=== PATIENT | female | born 1970 | race Hispanic/Latino ===

== ENCOUNTER 2016-12-28 13:38 | Emergency (ER) | payer MEDICAID ==
--- NOTE | 2016-12-28 14:16 | Admit Criteria Form ---
Admission Criteria Documentation: DRUG INGESTION OR OVERDOSE Clinical Indications for Admission to Inpatient Care ( Place 'X' for any and all applicable criteria): Admission is indicated for severe toxicity as indicated by ANY ONE of the following(1)(2)(3)(4)(5)(6): [X ]I. Inpatient admission required rather than observation care (Also use Drug Ingestion or Overdose: Observation Care guideline as appropriate) because of ANY ONE of the following: [ ]a) Altered mental status that is severe or persistent [ ]b) Clinical finding (eg, metabolic acidosis, hypoglycemia, bradycardia) that is severe or persistent [ ]c) Toxic drug level that is persistent [ ]d) Psychiatric risk status not acceptable for outpatient management [ ]e) Continuous intravenous infusion of anticoagulation, platelet inhibitor, vasoactive, or antiarrhythmic medication (15)(16) [X ]f) Other condition, treatment or monitoring requiring inpatient admission [ ]II. Respiratory abnormalities [ ]III. Specific finding indicating severe and likely prolonged drug toxicity [ ]IV. Hemodynamic instability [ ]V. Dangerous arrhythmia [ ]. Hypertension requiring inpatient treatment Extended stay beyond goal length of stay may be needed for (4): [ ]a) Neurologic or respiratory compromise [ ]b) Hemodynamic instability [ ]c) Persistent toxic drug levels (25) [ ]d) Severe drug toxicities or complications [ ]e) Ongoing antidote treatment (eg, acetaminophen overdose)(5) [ ]f) Older patients(65 years or older) The original [email or web address] content created by [employer] has been revised. The portions of the content which have been revised are identified through the use of italic text or in bold, and [facility] has neither reviewed nor approved the modified material. All other unmodified content is copyright [facility]. Please see references footnoted in the original [email or web address] edition 2016
[2016-12-28 14:56] LABS: Basophils % (Auto) 1.1 % (0.0-1.8); Eosinophils % (Auto) 0.5 % (0.0-4.3); Hematocrit 39.9 % (30.3-42.9); Hemoglobin 12.4 gm/dl (10.1-14.3); Mean Corpuscular HGB Conc 31 % (30-34); Mean Corpuscular Volume 80 fl (79-97); Platelet Count 382 K/mm3 (140-440); Red Blood Count 5.01 M/mm3 (3.65-5.03); Red Cell Distribution Width 18.4 % (13.2-15.2); White Blood Count 15.2 K/mm3 (4.5-11.0)
[2016-12-28 15:04] LABS: Mean Corpuscular Hemoglobin 25 pg (28-32)
[2016-12-28 15:13] LABS: Anion Gap 20 mmol/L; BUN/Creatinine Ratio 18.33; Blood Urea Nitrogen 11 mg/dL (7-17); Calcium 8.9 mg/dL (8.4-10.2); Carbon Dioxide 25 mmol/L (22-30); Chloride 96.9 mmol/L (98-107); Glucose 89 mg/dL (65-100); Potassium 4.6 mmol/L (3.6-5.0); Sodium 137 mmol/L (137-145)
[2016-12-28 15:23] LABS: Urine Drugs of Abuse Note Disclamer
[2016-12-28 15:31] LABS: Bilirubin,Urine NEG (Negative); Blood,Urine NEG (Negative); Ketones,Urine TR mg/dL (Negative); Leukocyte Esterase,Urine NEG (Negative); Mucus,Urine FEW /HPF; Nitrite,Urine NEG (Negative); Protein,Urine <15 mg/dL mg/dL (Negative); Urobilinogen,Urine < 2.0 mg/dL (<2.0)
--- NOTE | 2016-12-28 16:06 | Emergency Department Report ---
HPI - General Chief Complaint: Overdose Time Seen by Provider: 12/28/16 14:18 - HPI HPI: Chief complaint: Possible overdose HPI: Patient is a 46-year-old female whose daughter states that she was perfectly fine until someone came over and after they left approximately 20 minutes later patient was unarousable. Daughter called EMS who found the patient to be lethargic and gave her Narcan with very minimal response. According to the daughter patient has had a problem with narcotic pain medications as well as benzodiazepines but had weaned herself off of them and had not taken any for approximately one month. Mode of arrival: EMS Source: family member Began: Prior to admission Duration: Continuous Context: See above Quality: Unable to assess Severity: Unable to assess Improved with: Nothing Worsened with: Nothing Associated signs and symptoms: Unable to assess ED Past Medical Hx - Past Medical History Previous Medical History?: Yes Additional medical history: HAS A HX OF DRUG ABUSE - Social History Smoking Status: Current Every Day Smoker - Medications Home Medications: Home Medications Medication Instructions Recorded Confirmed Last Taken Type Unobtainable 12/28/16 12/28/16 Unknown History ED Review of Systems ROS: Stated complaint: POSS OVERDOSE Other details as noted in HPI Comment: Unobtainable due to pts medical conditions (patient with decreased responsiveness) Physical Exam - Physical Exam Vital Signs: Vital Signs 12/28/16 12/28/16 12/28/16 13:38 13:40 13:45 Temperature 97.5 F L Pulse Rate 73 67 59 L Respiratory 15 19 Rate Blood Pressure 143/76 143/76 O2 Sat by Pulse 97 97 98 Oximetry 12/28/16 12/28/16 12/28/16 14:00 14:15 14:31 Temperature Pulse Rate 55 L 61 70 Respiratory 18 13 15 Rate Blood Pressure 137/88 137/88 134/80 O2 Sat by Pulse 98 97 100 Oximetry Physical Exam: GENERAL: The patient is well-developed well-nourished . HEENT: Normocephalic. Atraumatic. Extraocular motions are intact. Patient has moist mucous membranes. Pupils 3 mm and responsive NECK: Supple. No meningitic signs are noted. There is no adenopathy noted. CHEST/LUNGS: Clear to auscultation. There is no respiratory distress noted. HEART/CARDIOVASCULAR: Regular. There is no tachycardia. There is no gallop rub or murmur. ABDOMEN: Abdomen is soft, nontender. Patient has normal bowel sounds. There is no abdominal distention. SKIN: There is no rash. There is no edema. There is no diaphoresis. NEURO: The patient is lethargic but will open her eyes and converse somewhat. Patient is oriented to name and situation but not date or time and unable to tell me what happened. The patient is cooperative. The patient moves all extremities to touch. MUSCULOSKELETAL: There is no deformity. There is no evidence of acute injury. ED Course Vital Signs 12/28/16 12/28/16 12/28/16 13:38 13:40 13:45 Temperature 97.5 F L Pulse Rate 73 67 59 L Respiratory 15 19 Rate Blood Pressure 143/76 143/76 O2 Sat by Pulse 97 97 98 Oximetry 12/28/16 12/28/16 12/28/16 14:00 14:15 14:31 Temperature Pulse Rate 55 L 61 70 Respiratory 18 13 15 Rate Blood Pressure 137/88 137/88 134/80 O2 Sat by Pulse 98 97 100 Oximetry - Reevaluation(s) Reevaluation #1: 12/28/16 16:00 Patient is now awake alert and oriented 3. The patient denies taking any drugs and states that she took a sip of her friend's drink and then doesn't remember what happened after that. The most likely cause of this is GHB ingestion. ED Medical Decision Making - Lab Data Result diagrams: 12/28/16 14:31 12/28/16 14:31 Laboratory Tests 12/28/16 12/28/16 12/28/16 14:08 14:08 14:31 Urine HCG, Qual Negative Salicylates Urine Opiates Screen Presumptive negative Urine Methadone Screen Presumptive negative Acetaminophen < 15.0 Ur Barbiturates Screen Presumptive negative Ur Phencyclidine Scrn Presumptive negative Ur Amphetamines Screen Presumptive negative U Benzodiazepines Scrn Presumptive negative Urine Cocaine Screen Presumptive negative U Marijuana (THC) Screen Presumptive negative Plasma/Serum Alcohol 12/28/16 12/28/16 14:31 14:31 Urine HCG, Qual Salicylates < 0.3 L Urine Opiates Screen Urine Methadone Screen Acetaminophen Ur Barbiturates Screen Ur Phencyclidine Scrn Ur Amphetamines Screen U Benzodiazepines Scrn Urine Cocaine Screen U Marijuana (THC) Screen Plasma/Serum Alcohol < 0.01 Critical care attestation.: If time is entered above; I have spent that time in minutes in the direct care of this critically ill patient, excluding procedure time. ED Disposition Clinical Impression: Accidental drug overdose Qualifiers: Encounter type: initial encounter Qualified Code(s): T50.901A - Poisoning by unspecified drugs, medicaments and biological substances, accidental ( unintentional), initial encounter Disposition: DISCHARGED TO HOME OR SELFCARE Is pt being admited?: No Does the pt Need Aspirin: No Condition: Stable Instructions: Polysubstance Abuse (ED) Referrals: PRIMARY CARE, [Primary Care Provider] - 3-5 Days Time of Disposition: 16:01
[2016-12-28 16:34] VITALS: BP 149/83
== END 2016-12-28 16:32 | disposition home or self-care (01) ==
LOC: ED 13:38
DX: T50.901A Poisoning by unspecified drugs, medicaments and biological substances, accidental (unintentional), initial encounter (principal); F17.200 Nicotine dependence, unspecified, uncomplicated; Y92.89 Other specified places as the place of occurrence of the external cause
CPT/HCPCS: 36415; 51702; 80048; 80307; 81001; 81025; 85025; 93005; 93010; 99284; G0480; 80320

== ENCOUNTER 2017-11-14 01:29 | Inpatient (IN) | payer MEDICAID, OTHER ==
--- NOTE | 2017-11-14 01:56 | Emergency Department Report ---
ED Altered Mental Status HPI - General Stated Complaint: POSS OD Time Seen by Provider: 11/14/17 01:42 Source: EMS Mode of arrival: Stretcher Limitations: Altered Mental Status - History of Present Illness Initial Comments: 47 yo female presents to the hospital with possible overdose. Patient was last seen normal 15 minutes prior to being discovered in the bed and unresponsive. Patient takes Xanax. History of overdose presentation here in December with GHB suspected. Patient received Narcan 2 mg prior to arrival with no response. She presents here obtunded without any response to noxious stimuli is in no gag reflex. - Related Data Home Medications Medication Instructions Recorded Confirmed Last Taken Unobtainable 12/28/16 12/28/16 Unknown Allergies Allergy/AdvReac Type Severity Reaction Status Date / Time naproxen Allergy Unknown Verified 12/28/16 13:40 ED Review of Systems ROS: Stated complaint: POSS OD Other details as noted in HPI Comment: Unobtainable due to pts medical conditions ED Past Medical Hx - Past Medical History Additional medical history: HAS A HX OF DRUG ABUSE - Social History Smoking Status: Current Every Day Smoker - Medications Home Medications: Home Medications Medication Instructions Recorded Confirmed Last Taken Type Unobtainable 12/28/16 12/28/16 Unknown History ED Physical Exam - Other Other exam information: General: No limitations, patient is alert in no acute distress Head exam: Atraumatic, normocephalic Eyes exam: Normal appearance, pupils equal reactive to light ENT: Moist mucous membrane, normal oropharynx, no gag reflex Neck exam: Normal inspection Respiratory exam: Clear to auscultation bilateral, no wheezes, rales, crackles Cardiovascular: Normal rate and rhythm, normal heart sounds Abdomen: Soft, nondistended, and nontender, with normal bowel sounds, no rebound, or guarding Extremity: Full range of motion normal inspection no deformity Back: Normal Inspection, full range of motion, no tenderness Neurologic: Obtunded, does not open eyes spontaneously or to pain, spontaneous movement of her feet noted Psychiatric: unresponsive Skin: Warm, dry, intact ED Course Vital Signs 11/14/17 11/14/17 11/14/17 01:46 02:00 02:01 Pulse Rate 60 60 59 L Respiratory 12 12 14 Rate Blood Pressure 148/95 135/87 Blood Pressure 146/85 [Left] O2 Sat by Pulse 100 100 100 Oximetry 11/14/17 11/14/17 11/14/17 02:15 02:16 02:30 Pulse Rate 57 L 58 L 44 L Respiratory 16 11 L Rate Blood Pressure 183/109 168/99 180/94 Blood Pressure [Left] O2 Sat by Pulse 100 100 100 Oximetry 11/14/17 11/14/17 02:43 02:45 Pulse Rate 48 L Respiratory 16 16 Rate Blood Pressure 183/92 Blood Pressure [Left] O2 Sat by Pulse 100 100 Oximetry - Reevaluation(s) Reevaluation #1: 11/14/17 02:11 pt intubated for airway protection, since no gag reflex detected and patient did not have a response to Narcan. Did not want to give flumazenil due to risk of seizures in patients who have chronic benzodiazepine use. - Intubation Time Out Performed: Yes Sedative: Etomidate Mg Given: 20 Paralytic: Succinylcholine Mg Given: 100 Laryngoscope: Milind Size: 3 ET Tube Size: 7.5 Tube Secured Depth (cm): 21 Tube Secured Location: lips Tube Placement Confirmation: visualized tube passing t, equal breath sounds bilat, no breath sounds over epi, confirmation by capnometr Patient Tolerated Procedure: well Intubation Complications: none - Lab Data Result diagrams: 11/14/17 02:08 11/14/17 02:08 Lab Results 11/14/17 11/14/17 11/14/17 Range/Units 01:43 01:50 02:08 WBC 6.8 (4.5-11.0) K/mm3 RBC 4.24 (3.65-5.03) M/mm3 Hgb 10.9 (10.1-14.3) gm/dl Hct 34.0 (30.3-42.9) % MCV 80 (79-97) fl MCH 26 L (28-32) pg MCHC 32 (30-34) % RDW 18.2 H (13.2-15.2) % Plt Count 396 (140-440) K/mm3 Lymph % (Auto) 31.1 (13.4-35.0) % Haines % (Auto) 6.7 (0.0-7.3) % Eos % (Auto) 0.7 (0.0-4.3) % Baso % (Auto) 1.9 H (0.0-1.8) % Lymph # 2.1 (1.2-5.4) K/mm3 Haines # 0.5 (0.0-0.8) K/mm3 Eos # 0.0 (0.0-0.4) K/mm3 Baso # 0.1 (0.0-0.1) K/mm3 Seg Neutrophils % 59.6 (40.0-70.0) % Seg Neutrophils # 4.0 (1.8-7.7) K/mm3 POC ABG pH (7.35-7.45) POC ABG pCO2 (35-45) POC ABG pO2 (80-105) POC ABG HCO3 POC ABG Total CO2 POC ABG O2 Sat POC ABG Base Excess FiO2 % Sodium (137-145) mmol/L Potassium (3.6-5.0) mmol/L Chloride (98-107) mmol/L Carbon Dioxide (22-30) mmol/L Anion Gap mmol/L BUN (7-17) mg/dL Creatinine (0.7-1.2) mg/dL Estimated GFR ml/min BUN/Creatinine Ratio % Glucose (65-100) mg/dL Lactic Acid (0.7-2.0) mmol/L Calcium (8.4-10.2) mg/dL Total Bilirubin (0.1-1.2) mg/dL AST (5-40) units/L ALT (7-56) units/L Alkaline Phosphatase (35-129) units/L Ammonia (25-60) umol/L Total Creatine Kinase (30-135) units/L CK-MB (CK-2) (0.0-4.0) ng/mL CK-MB (CK-2) Rel Index (0-4) Troponin T (0.00-0.029) ng/mL Total Protein (6.3-8.2) g/dL Albumin (3.9-5) g/dL Albumin/Globulin Ratio % HCG, Qual (Negative) Urine Color (Yellow) Urine Turbidity (Clear) Urine pH (5.0-7.0) Ur Specific [place] (1.003-1.030) Urine Protein (Negative) mg/dL Urine Glucose (UA) (Negative) mg/dL Urine Ketones (Negative) mg/dL Urine Blood (Negative) Urine Nitrite (Negative) Urine Bilirubin (Negative) Urine Urobilinogen (<2.0) mg/dL Ur Leukocyte Esterase (Negative) Urine WBC (Auto) (0.0-6.0) /HPF Urine RBC (Auto) (0.0-6.0) /HPF U Epithel Cells (Auto) (0-13.0) /HPF Urine Mucus /HPF Salicylates < 0.3 L (2.8-20.0) mg/dL Urine Opiates Screen Presumptive negative Urine Methadone Screen Presumptive negative Acetaminophen (10.0-30.0) ug/mL Ur Barbiturates Screen Presumptive negative Ur Phencyclidine Scrn Presumptive negative Ur Amphetamines Screen Presumptive positive U Benzodiazepines Scrn Presumptive positive Urine Cocaine Screen Presumptive negative U Marijuana (THC) Screen Presumptive negative Drugs of Abuse Note Disclamer Plasma/Serum Alcohol (0-0.07) gm% 11/14/17 11/14/17 11/14/17 Range/Units 02:08 02:08 02:08 WBC (4.5-11.0) K/mm3 RBC (3.65-5.03) M/mm3 Hgb (10.1-14.3) gm/dl Hct (30.3-42.9) % MCV (79-97) fl MCH (28-32) pg MCHC (30-34) % RDW (13.2-15.2) % Plt Count (140-440) K/mm3 Lymph % (Auto) (13.4-35.0) % Haines % (Auto) (0.0-7.3) % Eos % (Auto) (0.0-4.3) % Baso % (Auto) (0.0-1.8) % Lymph # (1.2-5.4) K/mm3 Haines # (0.0-0.8) K/mm3 Eos # (0.0-0.4) K/mm3 Baso # (0.0-0.1) K/mm3 Seg Neutrophils % (40.0-70.0) % Seg Neutrophils # (1.8-7.7) K/mm3 POC ABG pH (7.35-7.45) POC ABG pCO2 (35-45) POC ABG pO2 (80-105) POC ABG HCO3 POC ABG Total CO2 POC ABG O2 Sat POC ABG Base Excess FiO2 % Sodium 138 (137-145) mmol/L Potassium 4.7 (3.6-5.0) mmol/L Chloride 99.5 (98-107) mmol/L Carbon Dioxide 22 (22-30) mmol/L Anion Gap 21 mmol/L BUN 10 (7-17) mg/dL Creatinine 0.6 L (0.7-1.2) mg/dL Estimated GFR > 60 ml/min BUN/Creatinine Ratio 17 % Glucose 110 H (65-100) mg/dL Lactic Acid 0.90 (0.7-2.0) mmol/L Calcium 8.9 (8.4-10.2) mg/dL Total Bilirubin 0.40 (0.1-1.2) mg/dL AST 17 (5-40) units/L ALT 29 (7-56) units/L Alkaline Phosphatase 110 (35-129) units/L Ammonia 34.0 (25-60) umol/L Total Creatine Kinase 106 (30-135) units/L CK-MB (CK-2) 3.1 (0.0-4.0) ng/mL CK-MB (CK-2) Rel Index 2.9 (0-4) Troponin T < 0.010 (0.00-0.029) ng/mL Total Protein 6.5 (6.3-8.2) g/dL Albumin 4.1 (3.9-5) g/dL Albumin/Globulin Ratio 1.7 % HCG, Qual (Negative) Urine Color (Yellow) Urine Turbidity (Clear) Urine pH (5.0-7.0) Ur Specific [place] (1.003-1.030) Urine Protein (Negative) mg/dL Urine Glucose (UA) (Negative) mg/dL Urine Ketones (Negative) mg/dL Urine Blood (Negative) Urine Nitrite (Negative) Urine Bilirubin (Negative) Urine Urobilinogen (<2.0) mg/dL Ur Leukocyte Esterase (Negative) Urine WBC (Auto) (0.0-6.0) /HPF Urine RBC (Auto) (0.0-6.0) /HPF U Epithel Cells (Auto) (0-13.0) /HPF Urine Mucus /HPF Salicylates (2.8-20.0) mg/dL Urine Opiates Screen Urine Methadone Screen Acetaminophen (10.0-30.0) ug/mL Ur Barbiturates Screen Ur Phencyclidine Scrn Ur Amphetamines Screen U Benzodiazepines Scrn Urine Cocaine Screen U Marijuana (THC) Screen Drugs of Abuse Note Plasma/Serum Alcohol (0-0.07) gm% 11/14/17 11/14/17 11/14/17 Range/Units 02:08 02:08 02:08 WBC (4.5-11.0) K/mm3 RBC (3.65-5.03) M/mm3 Hgb (10.1-14.3) gm/dl Hct (30.3-42.9) % MCV (79-97) fl MCH (28-32) pg MCHC (30-34) % RDW (13.2-15.2) % Plt Count (140-440) K/mm3 Lymph % (Auto) (13.4-35.0) % Haines % (Auto) (0.0-7.3) % Eos % (Auto) (0.0-4.3) % Baso % (Auto) (0.0-1.8) % Lymph # (1.2-5.4) K/mm3 Haines # (0.0-0.8) K/mm3 Eos # (0.0-0.4) K/mm3 Baso # (0.0-0.1) K/mm3 Seg Neutrophils % (40.0-70.0) % Seg Neutrophils # (1.8-7.7) K/mm3 POC ABG pH (7.35-7.45) POC ABG pCO2 (35-45) POC ABG pO2 (80-105) POC ABG HCO3 POC ABG Total CO2 POC ABG O2 Sat POC ABG Base Excess FiO2 % Sodium (137-145) mmol/L Potassium (3.6-5.0) mmol/L Chloride (98-107) mmol/L Carbon Dioxide (22-30) mmol/L Anion Gap mmol/L BUN (7-17) mg/dL Creatinine (0.7-1.2) mg/dL Estimated GFR ml/min BUN/Creatinine Ratio % Glucose (65-100) mg/dL Lactic Acid (0.7-2.0) mmol/L Calcium (8.4-10.2) mg/dL Total Bilirubin (0.1-1.2) mg/dL AST (5-40) units/L ALT (7-56) units/L Alkaline Phosphatase (35-129) units/L Ammonia (25-60) umol/L Total Creatine Kinase (30-135) units/L CK-MB (CK-2) (0.0-4.0) ng/mL CK-MB (CK-2) Rel Index (0-4) Troponin T (0.00-0.029) ng/mL Total Protein (6.3-8.2) g/dL Albumin (3.9-5) g/dL Albumin/Globulin Ratio % HCG, Qual Negative (Negative) Urine Color (Yellow) Urine Turbidity (Clear) Urine pH (5.0-7.0) Ur Specific [place] (1.003-1.030) Urine Protein (Negative) mg/dL Urine Glucose (UA) (Negative) mg/dL Urine Ketones (Negative) mg/dL Urine Blood (Negative) Urine Nitrite (Negative) Urine Bilirubin (Negative) Urine Urobilinogen (<2.0) mg/dL Ur Leukocyte Esterase (Negative) Urine WBC (Auto) (0.0-6.0) /HPF Urine RBC (Auto) (0.0-6.0) /HPF U Epithel Cells (Auto) (0-13.0) /HPF Urine Mucus /HPF Salicylates (2.8-20.0) mg/dL Urine Opiates Screen Urine Methadone Screen Acetaminophen < 15.0 (10.0-30.0) ug/mL Ur Barbiturates Screen Ur Phencyclidine Scrn Ur Amphetamines Screen U Benzodiazepines Scrn Urine Cocaine Screen U Marijuana (THC) Screen Drugs of Abuse Note Plasma/Serum Alcohol < 0.01 (0-0.07) gm% 11/14/17 11/14/17 Range/Units 02:43 03:48 WBC (4.5-11.0) K/mm3 RBC (3.65-5.03) M/mm3 Hgb (10.1-14.3) gm/dl Hct (30.3-42.9) % MCV (79-97) fl MCH (28-32) pg MCHC (30-34) % RDW (13.2-15.2) % Plt Count (140-440) K/mm3 Lymph % (Auto) (13.4-35.0) % Haines % (Auto) (0.0-7.3) % Eos % (Auto) (0.0-4.3) % Baso % (Auto) (0.0-1.8) % Lymph # (1.2-5.4) K/mm3 Haines # (0.0-0.8) K/mm3 Eos # (0.0-0.4) K/mm3 Baso # (0.0-0.1) K/mm3 Seg Neutrophils % (40.0-70.0) % Seg Neutrophils # (1.8-7.7) K/mm3 POC ABG pH 7.688 H (7.35-7.45) POC ABG pCO2 17.3 L (35-45) POC ABG pO2 205 H (80-105) POC ABG HCO3 20.8 POC ABG Total CO2 21 POC ABG O2 Sat 100 POC ABG Base Excess 1 FiO2 65 % Sodium (137-145) mmol/L Potassium (3.6-5.0) mmol/L Chloride (98-107) mmol/L Carbon Dioxide (22-30) mmol/L Anion Gap mmol/L BUN (7-17) mg/dL Creatinine (0.7-1.2) mg/dL Estimated GFR ml/min BUN/Creatinine Ratio % Glucose (65-100) mg/dL Lactic Acid (0.7-2.0) mmol/L Calcium (8.4-10.2) mg/dL Total Bilirubin (0.1-1.2) mg/dL AST (5-40) units/L ALT (7-56) units/L Alkaline Phosphatase (35-129) units/L Ammonia (25-60) umol/L Total Creatine Kinase (30-135) units/L CK-MB (CK-2) (0.0-4.0) ng/mL CK-MB (CK-2) Rel Index (0-4) Troponin T (0.00-0.029) ng/mL Total Protein (6.3-8.2) g/dL Albumin (3.9-5) g/dL Albumin/Globulin Ratio % HCG, Qual (Negative) Urine Color [place] (Yellow) Urine Turbidity Clear (Clear) Urine pH 5.0 (5.0-7.0) Ur Specific [place] 1.028 (1.003-1.030) Urine Protein 30 mg/dl (Negative) mg/dL Urine Glucose (UA) Neg (Negative) mg/dL Urine Ketones Tr (Negative) mg/dL Urine Blood Neg (Negative) Urine Nitrite Neg (Negative) Urine Bilirubin Neg (Negative) Urine Urobilinogen < 2.0 (<2.0) mg/dL Ur Leukocyte Esterase Neg (Negative) Urine WBC (Auto) < 1.0 (0.0-6.0) /HPF Urine RBC (Auto) < 1.0 (0.0-6.0) /HPF U Epithel Cells (Auto) 4.0 (0-13.0) /HPF Urine Mucus Few /HPF Salicylates (2.8-20.0) mg/dL Urine Opiates Screen Urine Methadone Screen Acetaminophen (10.0-30.0) ug/mL Ur Barbiturates Screen Ur Phencyclidine Scrn Ur Amphetamines Screen U Benzodiazepines Scrn Urine Cocaine Screen U Marijuana (THC) Screen Drugs of Abuse Note Plasma/Serum Alcohol (0-0.07) gm% - EKG Data -: EKG Interpreted by Ar EKG shows normal: sinus rhythm, axis (61), QRS complexes (94), ST-T waves (no stemi/t inv) Rate: normal (62) When compared to previous EKG there are: no significant change - Radiology Data Radiology results: report reviewed read by radiologist cxr: naf CT head: naf - Medical Decision Making Patient has history of drug overdose and UDS positive for amphetamines and benzos today CT head, chest x-ray, and other laboratory findings are unremarkable ABG showed a respiratory alkalosis and vent settings were changed see respiratory note Plan to admit patient to the hospital ICU - Differential Diagnosis drug overdose, ICH, encephalopathy Critical Care Time: No Critical care attestation.: If time is entered above; I have spent that time in minutes in the direct care of this critically ill patient, excluding procedure time. ED Disposition Clinical Impression: Overdose, Amphetamine abuse, Benzodiazepine dependence, Obtundation, Endotracheally intubated Disposition: [id number] OP ADMIT IP TO THIS HOSP Is pt being admited?: Yes Condition: Stable Time of Disposition: 04:40 (Dr Mancuso/hosp)
[2017-11-14] MEDS ORDERED: AMIDATE IV ONE (02:05)
[2017-11-14] MEDS ORDERED: QUELICIN ONE (02:05)
[2017-11-14] MEDS ORDERED: VASELINE LIP THERAPY TP PRN (02:08)
[2017-11-14] MEDS ORDERED: ARTIFICIAL TEARS OPHTH OINT OU PRN (02:08)
--- NOTE | 2017-11-14 02:25 | XRay Report ---
FINAL REPORT EXAM: XR CHEST 1V AP HISTORY: post intubation TECHNIQUE: A portable supine view of the chest was submitted following intubation. FINDINGS: The tip of the ET tube is in good position 3.2 cm above the kira. The heart size and mediastinum appear normal. The lungs are clear. Pleural fluid is not seen. There are EKG leads overlying the chest wall. The bones and soft tissues do not show any acute changes. IMPRESSION: Satisfactory intubation. No acute process in the chest otherwise.
[2017-11-14 02:27] LABS: Basophils % (Auto) 1.9 % (0.0-1.8); Eosinophils % (Auto) 0.7 % (0.0-4.3); Hemoglobin 10.9 gm/dl (10.1-14.3); Mean Corpuscular HGB Conc 32 % (30-34); Mean Corpuscular Volume 80 fl (79-97); Platelet Count 396 K/mm3 (140-440); Red Blood Count 4.24 M/mm3 (3.65-5.03); Red Cell Distribution Width 18.2 % (13.2-15.2); White Blood Count 6.8 K/mm3 (4.5-11.0)
[2017-11-14 02:32] LABS: Mean Corpuscular Hemoglobin 26 pg (28-32)
[2017-11-14 02:43] LABS: Urine Drugs of Abuse Note Disclamer
[2017-11-14 02:48] LABS: Creatine Kinase MB 3.1 ng/mL (0.0-4.0)
[2017-11-14 02:49] LABS: Bilirubin,Urine NEG (Negative); Blood,Urine NEG (Negative); Ketones,Urine TR mg/dL (Negative); Leukocyte Esterase,Urine NEG (Negative); Mucus,Urine FEW /HPF; Nitrite,Urine NEG (Negative); RBC,Urine < 1.0 /HPF (0.0-6.0); Urobilinogen,Urine < 2.0 mg/dL (<2.0); WBC,Urine < 1.0 /HPF (0.0-6.0)
[2017-11-14 02:51] LABS: Alanine Aminotransferase 29 units/L (7-56); Albumin 4.1 g/dL (3.9-5); Albumin/Globulin Ratio 1.7 %; Alkaline Phosphatase 110 units/L (35-129); BUN/Creatinine Ratio 17; Blood Urea Nitrogen 10 mg/dL (7-17); Calcium 8.9 mg/dL (8.4-10.2); Carbon Dioxide 22 mmol/L (22-30); Creatine Kinase 106 units/L (30-135); Glucose 110 mg/dL (65-100); Total Protein 6.5 g/dL (6.3-8.2)
[2017-11-14 02:52] LABS: Anion Gap 21 mmol/L; Chloride 99.5 mmol/L (98-107); Potassium 4.7 mmol/L (3.6-5.0); Sodium 138 mmol/L (137-145)
[2017-11-14] MEDS ORDERED: ATIVAN ONE (03:43)
[2017-11-14 03:53] LABS: ISTAT Base Excess 1; ISTAT HCO3 20.8; ISTAT PCO2 17.3 (35-45); ISTAT PH 7.688 (7.35-7.45); ISTAT PO2 205 (80-105); ISTAT SO2 100; ISTAT TCO2 21
[2017-11-14] MEDS ORDERED: ATIVAN IV ONE (03:57)
--- NOTE | 2017-11-14 04:14 | Cat Scan Report ---
FINAL REPORT EXAM: CT HEAD/BRAIN WO CON HISTORY: ams TECHNIQUE: Routine axial imaging was obtained of the brain without IV contrast. There are no previous studies available for comparison. FINDINGS: The ventricular system is appropriate in size and is symmetric. There is no evidence of acute stroke or hemorrhage. The basal cisterns appear normal. The visualized sinuses are clear. The mastoid air cells are well pneumatized. IMPRESSION: Within normal limits.
[2017-11-14] MEDS ORDERED: APRESOLINE IV PRN (07:04)
[2017-11-14] MEDS ORDERED: D5/0.45NS 1,000 ML IV SCH (08:00)
--- NOTE | 2017-11-14 09:32 | History and Physical Report ---
<ELIZABET MIKE - Last Filed: 11/14/17 11:50> History of Present Illness Date of examination: 11/14/17 Date of admission: 11/14/17 04:40 Chief complaint: Overdose History of present illness: Patient is a 47 years old with past medical history of anxiety, drug abuse and smoker who presents to the Emergency Department by EMS for possible drug overdose. Patient intubated and sedated; therefore unable to obtain detail history. Per her daughter Patient went to her boyfriend mom house and was upset and start drinking beer shotly after her boyfriend found her unresponsive in the bed. Per boyfriend patient takes Xanax for anxiety. History of overdose presentation here in December with GHB suspected. No reports of seizure, fever or trauma. Past History Past Medical History: No medical history, other (anxiety drug abuse and smoker) Past Surgical History: Other (unable to obtain due to patient's mental status) Social history: smoking, alcohol abuse, other Family history: other (unable to obtain due to patient's mental status) Medications and Allergies Allergies Allergy/AdvReac Type Severity Reaction Status Date / Time naproxen Allergy Unknown Verified 12/28/16 13:40 Home Medications Medication Instructions Recorded Confirmed Last Taken Type ALPRAZolam [Xanax TAB] 2 mg PO DAILY 11/14/17 11/14/17 11/13/17 History Amoxicillin/K Clav Tab [Augmentin 875 mg PO BID 11/14/17 11/14/17 11/13/17 History 875MG TAB] Lisinopril [Zestril] 20 mg PO DAILY 11/14/17 11/14/17 11/13/17 History Ondansetron [Zofran TAB] 8 mg PO Q8H PRN 11/14/17 11/14/17 11/13/17 History Active Meds: Active Medications Hydralazine HCl (Apresoline) 10 mg IV Q4HR PRN PRN Reason: SBP<160 Hydrophilic Ointment (Vaseline Lip Therapy) 1 applic TP Q2HR PRN PRN Reason: Dry Lips Dextrose/Sodium Chloride (D5/0.45ns) 1,000 mls @ 75 mls/hr IV DIRECT MICHAEL Multi-Ingred Cream/Lotion/Oil/Oint (Artificial Tears Ophth Oint) 1 applic OU Q4HR PRN PRN Reason: Dry Eye(s) Review of Systems ROS unobtainable: due to mental status (unable to obtain due to patient's mental status) Exam - Constitutional Vitals: Temp Pulse Resp BP Pulse Ox 96.8 F L 95 H 16 141/94 100 11/14/17 05:45 11/14/17 09:00 11/14/17 09:00 11/14/17 09:00 11/14/17 09:00 General appearance: Present: severe distress, other (intubated and sedated) - EENT Eyes: Present: PERRL ENT: hearing intact - Neck Neck: Present: supple - Respiratory Respiratory effort: normal Respiratory: bilateral: CTA - Cardiovascular Rhythm: regular Heart Sounds: Present: S1 & S2 - Abdominal General gastrointestinal: Present: soft, non-tender Female genitourinary: Present: deferred - Rectal Rectal Exam: deferred - Integumentary Integumentary: Present: clear, warm, dry - Musculoskeletal Musculoskeletal: strength equal bilaterally - Psychiatric Psychiatric: appropriate mood/affect - Neurologic Neurologic: moves all extremities - Allied Health Allied health notes reviewed: nursing Results - Labs CBC & Chem 7: 11/14/17 02:08 11/14/17 02:08 Labs: Laboratory Last Values WBC 6.8 K/mm3 (4.5-11.0) 11/14/17 02:08 RBC 4.24 M/mm3 (3.65-5.03) 11/14/17 02:08 Hgb 10.9 gm/dl (10.1-14.3) 11/14/17 02:08 Hct 34.0 % (30.3-42.9) 11/14/17 02:08 MCV 80 fl (79-97) 11/14/17 02:08 MCH 26 pg (28-32) L 11/14/17 02:08 MCHC 32 % (30-34) 11/14/17 02:08 RDW 18.2 % (13.2-15.2) H 11/14/17 02:08 Plt Count 396 K/mm3 (140-440) 11/14/17 02:08 Lymph % (Auto) 31.1 % (13.4-35.0) 11/14/17 02:08 [place] % (Auto) 6.7 % (0.0-7.3) 11/14/17 02:08 Eos % (Auto) 0.7 % (0.0-4.3) 11/14/17 02:08 Baso % (Auto) 1.9 % (0.0-1.8) H 11/14/17 02:08 Lymph # 2.1 K/mm3 (1.2-5.4) 11/14/17 02:08 [place] # 0.5 K/mm3 (0.0-0.8) 11/14/17 02:08 Eos # 0.0 K/mm3 (0.0-0.4) 11/14/17 02:08 Baso # 0.1 K/mm3 (0.0-0.1) 11/14/17 02:08 Seg Neutrophils % 59.6 % (40.0-70.0) 11/14/17 02:08 Seg Neutrophils # 4.0 K/mm3 (1.8-7.7) 11/14/17 02:08 POC ABG pH 7.688 (7.35-7.45) H 11/14/17 03:48 POC ABG pCO2 17.3 (35-45) L 11/14/17 03:48 POC ABG pO2 205 (80-105) H 11/14/17 03:48 POC ABG HCO3 20.8 11/14/17 03:48 POC ABG Total CO2 21 11/14/17 03:48 POC ABG O2 Sat 100 11/14/17 03:48 POC ABG Base Excess 1 11/14/17 03:48 FiO2 65 % 11/14/17 03:48 Sodium 138 mmol/L (137-145) 11/14/17 02:08 Potassium 4.7 mmol/L (3.6-5.0) 11/14/17 02:08 Chloride 99.5 mmol/L (98-107) 11/14/17 02:08 Carbon Dioxide 22 mmol/L (22-30) 11/14/17 02:08 Anion Gap 21 mmol/L 11/14/17 02:08 BUN 10 mg/dL (7-17) 11/14/17 02:08 Creatinine 0.6 mg/dL (0.7-1.2) L 11/14/17 02:08 Estimated GFR > 60 ml/min 11/14/17 02:08 BUN/Creatinine Ratio 17 % 11/14/17 02:08 Glucose 110 mg/dL (65-100) H 11/14/17 02:08 Lactic Acid 0.90 mmol/L (0.7-2.0) 11/14/17 02:08 Calcium 8.9 mg/dL (8.4-10.2) 11/14/17 02:08 Total Bilirubin 0.40 mg/dL (0.1-1.2) 11/14/17 02:08 AST 17 units/L (5-40) 11/14/17 02:08 ALT 29 units/L (7-56) 11/14/17 02:08 Alkaline Phosphatase 110 units/L (35-129) 11/14/17 02:08 Ammonia 34.0 umol/L (25-60) 11/14/17 02:08 Total Creatine Kinase 106 units/L (30-135) 11/14/17 02:08 CK-MB (CK-2) 3.1 ng/mL (0.0-4.0) 11/14/17 02:08 CK-MB (CK-2) Rel Index 2.9 (0-4) 11/14/17 02:08 Troponin T < 0.010 ng/mL (0.00-0.029) 11/14/17 02:08 Total Protein 6.5 g/dL (6.3-8.2) 11/14/17 02:08 Albumin 4.1 g/dL (3.9-5) 11/14/17 02:08 Albumin/Globulin Ratio 1.7 % 11/14/17 02:08 HCG, Qual Negative (Negative) 11/14/17 02:08 Urine Color [place] (Yellow) 11/14/17 02:43 Urine Turbidity Clear (Clear) 11/14/17 02:43 Urine pH 5.0 (5.0-7.0) 11/14/17 02:43 Ur Specific [place] 1.028 (1.003-1.030) 11/14/17 02:43 Urine Protein 30 mg/dl mg/dL (Negative) 11/14/17 02:43 Urine Glucose (UA) Neg mg/dL (Negative) 11/14/17 02:43 Urine Ketones Tr mg/dL (Negative) 11/14/17 02:43 Urine Blood Neg (Negative) 11/14/17 02:43 Urine Nitrite Neg (Negative) 11/14/17 02:43 Urine Bilirubin Neg (Negative) 11/14/17 02:43 Urine Urobilinogen < 2.0 mg/dL (<2.0) 11/14/17 02:43 Ur Leukocyte Esterase Neg (Negative) 11/14/17 02:43 Urine WBC (Auto) < 1.0 /HPF (0.0-6.0) 11/14/17 02:43 Urine RBC (Auto) < 1.0 /HPF (0.0-6.0) 11/14/17 02:43 U Epithel Cells (Auto) 4.0 /HPF (0-13.0) 11/14/17 02:43 Urine Mucus Few /HPF 11/14/17 02:43 Salicylates < 0.3 mg/dL (2.8-20.0) L 11/14/17 01:50 Urine Opiates Screen Presumptive negative 11/14/17 01:43 Urine Methadone Screen Presumptive negative 11/14/17 01:43 Acetaminophen < 15.0 ug/mL (10.0-30.0) 11/14/17 02:08 Ur Barbiturates Screen Presumptive negative 11/14/17 01:43 Ur Phencyclidine Scrn Presumptive negative 11/14/17 01:43 Ur Amphetamines Screen Presumptive positive 11/14/17 01:43 U Benzodiazepines Scrn Presumptive positive 11/14/17 01:43 Urine Cocaine Screen Presumptive negative 11/14/17 01:43 U Marijuana (THC) Screen Presumptive negative 11/14/17 01:43 Drugs of Abuse Note Disclamer 11/14/17 01:43 Plasma/Serum Alcohol < 0.01 gm% (0-0.07) 11/14/17 02:08 - Imaging and Cardiology Chest x-ray: image reviewed (unremarkable ) CT Scan - head: image reviewed (No acute intracranial process) Assessment and Plan Assessment and plan: Patient is a 47 years old with past medical history of anxiety, drug abuse and smoker who presents to the Emergency Department by EMS for possible drug overdose. Patient intubated and sedated; therefore unable to obtain detail history. Per her daughter Patient went to her boyfriend mom house and was upset and start drinking beer shotly after her boyfriend found her unresponsive in the bed. Acute respiratory failure with hypoxia Etiology; possibly Xanax and alcohol overdose Intubated sedated Aggressive Nebulizers/Inhalers ABG when necessary Oxygen supplement Supportive care Consult Overdose Possible Xanax and alcohol overdose UDS positive for Amphetaminnes and Benzodiazepines CT of the head no acute intracranial process We will continue to monitor Mental health consult Tobacco abuse Smoking cessation counseling done. Patient strongly advised to quit. DVT prophylaxis Lovenox Advance Directives: Yes VTE prophylaxis?: Chemical Contraindication Mechanical VTE Prophylaxis: Treatment Not Indicated Plan of care discussed with patient/family: Yes <SAÚL GOODRICH - Last Filed: 11/14/17 19:06> History of Present Illness Date of admission: 11/14/17 04:40 Exam - Constitutional Vitals: Temp Pulse Resp BP Pulse Ox 97.7 F 110 H 18 135/85 100 11/14/17 15:33 11/14/17 15:33 11/14/17 15:33 11/14/17 15:33 11/14/17 15:33 Results - Labs CBC & Chem 7: 11/14/17 02:08 11/14/17 02:08 Labs: Laboratory Last Values WBC 6.8 K/mm3 (4.5-11.0) 11/14/17 02:08 RBC 4.24 M/mm3 (3.65-5.03) 11/14/17 02:08 Hgb 10.9 gm/dl (10.1-14.3) 11/14/17 02:08 Hct 34.0 % (30.3-42.9) 11/14/17 02:08 MCV 80 fl (79-97) 11/14/17 02:08 MCH 26 pg (28-32) L 11/14/17 02:08 MCHC 32 % (30-34) 11/14/17 02:08 RDW 18.2 % (13.2-15.2) H 11/14/17 02:08 Plt Count 396 K/mm3 (140-440) 11/14/17 02:08 Lymph % (Auto) 31.1 % (13.4-35.0) 11/14/17 02:08 [place] % (Auto) 6.7 % (0.0-7.3) 11/14/17 02:08 Eos % (Auto) 0.7 % (0.0-4.3) 11/14/17 02:08 Baso % (Auto) 1.9 % (0.0-1.8) H 11/14/17 02:08 Lymph # 2.1 K/mm3 (1.2-5.4) 11/14/17 02:08 [place] # 0.5 K/mm3 (0.0-0.8) 11/14/17 02:08 Eos # 0.0 K/mm3 (0.0-0.4) 11/14/17 02:08 Baso # 0.1 K/mm3 (0.0-0.1) 11/14/17 02:08 Seg Neutrophils % 59.6 % (40.0-70.0) 11/14/17 02:08 Seg Neutrophils # 4.0 K/mm3 (1.8-7.7) 11/14/17 02:08 POC ABG pH 7.688 (7.35-7.45) H 11/14/17 03:48 POC ABG pCO2 17.3 (35-45) L 11/14/17 03:48 POC ABG pO2 205 (80-105) H 11/14/17 03:48 POC ABG HCO3 20.8 11/14/17 03:48 POC ABG Total CO2 21 11/14/17 03:48 POC ABG O2 Sat 100 11/14/17 03:48 POC ABG Base Excess 1 11/14/17 03:48 FiO2 65 % 11/14/17 03:48 Sodium 138 mmol/L (137-145) 11/14/17 02:08 Potassium 4.7 mmol/L (3.6-5.0) 11/14/17 02:08 Chloride 99.5 mmol/L (98-107) 11/14/17 02:08 Carbon Dioxide 22 mmol/L (22-30) 11/14/17 02:08 Anion Gap 21 mmol/L 11/14/17 02:08 BUN 10 mg/dL (7-17) 11/14/17 02:08 Creatinine 0.6 mg/dL (0.7-1.2) L 11/14/17 02:08 Estimated GFR > 60 ml/min 11/14/17 02:08 BUN/Creatinine Ratio 17 % 11/14/17 02:08 Glucose 110 mg/dL (65-100) H 11/14/17 02:08 Lactic Acid 0.90 mmol/L (0.7-2.0) 11/14/17 02:08 Calcium 8.9 mg/dL (8.4-10.2) 11/14/17 02:08 Total Bilirubin 0.40 mg/dL (0.1-1.2) 11/14/17 02:08 AST 17 units/L (5-40) 11/14/17 02:08 ALT 29 units/L (7-56) 11/14/17 02:08 Alkaline Phosphatase 110 units/L (35-129) 11/14/17 02:08 Ammonia 34.0 umol/L (25-60) 11/14/17 02:08 Total Creatine Kinase 106 units/L (30-135) 11/14/17 02:08 CK-MB (CK-2) 3.1 ng/mL (0.0-4.0) 11/14/17 02:08 CK-MB (CK-2) Rel Index 2.9 (0-4) 11/14/17 02:08 Troponin T < 0.010 ng/mL (0.00-0.029) 11/14/17 02:08 Total Protein 6.5 g/dL (6.3-8.2) 11/14/17 02:08 Albumin 4.1 g/dL (3.9-5) 11/14/17 02:08 Albumin/Globulin Ratio 1.7 % 11/14/17 02:08 HCG, Qual Negative (Negative) 11/14/17 02:08 Urine Color [place] (Yellow) 11/14/17 02:43 Urine Turbidity Clear (Clear) 11/14/17 02:43 Urine pH 5.0 (5.0-7.0) 11/14/17 02:43 Ur Specific [place] 1.028 (1.003-1.030) 11/14/17 02:43 Urine Protein 30 mg/dl mg/dL (Negative) 11/14/17 02:43 Urine Glucose (UA) Neg mg/dL (Negative) 11/14/17 02:43 Urine Ketones Tr mg/dL (Negative) 11/14/17 02:43 Urine Blood Neg (Negative) 11/14/17 02:43 Urine Nitrite Neg (Negative) 11/14/17 02:43 Urine Bilirubin Neg (Negative) 11/14/17 02:43 Urine Urobilinogen < 2.0 mg/dL (<2.0) 11/14/17 02:43 Ur Leukocyte Esterase Neg (Negative) 11/14/17 02:43 Urine WBC (Auto) < 1.0 /HPF (0.0-6.0) 11/14/17 02:43 Urine RBC (Auto) < 1.0 /HPF (0.0-6.0) 11/14/17 02:43 U Epithel Cells (Auto) 4.0 /HPF (0-13.0) 11/14/17 02:43 Urine Mucus Few /HPF 11/14/17 02:43 Salicylates < 0.3 mg/dL (2.8-20.0) L 11/14/17 01:50 Urine Opiates Screen Presumptive negative 11/14/17 01:43 Urine Methadone Screen Presumptive negative 11/14/17 01:43 Acetaminophen < 15.0 ug/mL (10.0-30.0) 11/14/17 02:08 Ur Barbiturates Screen Presumptive negative 11/14/17 01:43 Ur Phencyclidine Scrn Presumptive negative 11/14/17 01:43 Ur Amphetamines Screen Presumptive positive 11/14/17 01:43 U Benzodiazepines Scrn Presumptive positive 11/14/17 01:43 Urine Cocaine Screen Presumptive negative 11/14/17 01:43 U Marijuana (THC) Screen Presumptive negative 11/14/17 01:43 Drugs of Abuse Note Disclamer 11/14/17 01:43 Plasma/Serum Alcohol < 0.01 gm% (0-0.07) 11/14/17 02:08 Assessment and Plan Assessment and plan: I saw and evaluated the patient. I agree with the findings and the plan of care as documented in the Nurse Practitioner's~note, with the following corrections and additions. Patient was alert and extubated at the time of my evaluation in the ER, stating that she will continue to take MET as it give her energy to clean the house. On transfer to the floor, the pt signed out AMA, refusing to have the iv line removed. I discussed with the nurse who stated they might informed the police to go to her house. However she later informed the nursing staff she will go to the hospital at [facility] to have her iv line removed.
[2017-11-14 15:34] VITALS: BP 135/85
--- NOTE | 2017-11-14 22:20 | Discharge Summary ---
Signed out against medical advice on 11/14/2017. ADMITTING DIAGNOSES: 1. Acute respiratory failure. 2. Intentional drug overdose with methamphetamine, Xanax, alcohol. 3. Tobacco abuse. HOSPITAL COURSE: The patient is a 47-year-old lady who has a history of drug abuse with methamphetamine, who was found by family members edgar but to have overdosed. Came to the Emergency Department with altered mental status. Intubated to protect her airways. She was commenced on IV hydration. [place] was given. The patient after IV hydration subsequently became more responsive. He was extubated. Transferred to the floor. The patient walked out against medical advice. Refused to sign any papers. He was advised by the nurses to have the IV line removed. The patient declined and walked out. Discussed with the nurse. Planned to inform the police as to get to house since she has a history of drug abuse. However, the patient was called by the nurse who stated that she had agreed to go to [facility] Emergency Room to have the IV line removed. DIAGNOSES: 1. At the time of signed out against medical advice was acute respiratory failure that had resolved. The patient was extubated. 2. Intentional drug overdose with meth, Xanax and alcohol. 3. Tobacco abuse. JOB# [id number] OO/NTS
== END 2017-11-14 14:30 | disposition left against medical advice (07) | DRG 917 ==
LOC: ED 01:29 → CC1 04:40 → 4A 12:55
PROVIDERS: ADMIT Internal Medicine; ATTEND Family Medicine
PROC: 5A1935Z Respiratory Ventilation, Less than 24 Consecutive Hours (ICD-10-PCS; principal; 2017-11-14)
PROC: 0BH17EZ Insertion of Endotracheal Airway into Trachea, Via Natural or Artificial Opening (ICD-10-PCS; 2017-11-14)
PROC: 4A033R1 Measurement of Arterial Saturation, Peripheral, Percutaneous Approach (ICD-10-PCS; 2017-11-14)
DX: T42.4X2A Poisoning by benzodiazepines, intentional self-harm, initial encounter (principal); J96.01 Acute respiratory failure with hypoxia; F13.20 Sedative, hypnotic or anxiolytic dependence, uncomplicated; R40.1 Stupor; Z97.8 Presence of other specified devices; F15.10 Other stimulant abuse, uncomplicated; Z88.8 Allergy status to other drugs, medicaments and biological substances; F17.200 Nicotine dependence, unspecified, uncomplicated; T51.92XA Toxic effect of unspecified alcohol, intentional self-harm, initial encounter; Y92.89 Other specified places as the place of occurrence of the external cause
CPT/HCPCS: 36415; 36600; 70450; 71010; 80053; 80307; 80320; 81001; 82140; 82550; 82553; 82803; 84484; 84703; 85025; 93005; 93010; 94002; 94760; 99285; G0480; J0330; J2060

== ENCOUNTER 2017-11-15 19:01 | Emergency (ER) | payer OTHER ==
--- NOTE | 2017-11-15 20:03 | Emergency Department Report ---
HPI - General Chief Complaint: Altered Mental Status Time Seen by Provider: 11/15/17 19:45 - HPI HPI: This is a 47-year-old [place] female presents to the emergency department by EMS from home with a possible drug overdose. The patient was admitted yesterday and was intubated after she came in unresponsive without any gag reflex and appeared to be in respiratory distress and was found to have had an accidental overdose of methamphetamine, Xanax and alcohol. Patient admits to taking Xanax today but says that she only took 2. She denies any current alcohol use. She says she remembers EMS coming to get her off the toilet which is where the patient was found altered by family. Allegedly she had a couple of falls. The patient does appear fatigued but is arousable at this time. ED Past Medical Hx - Past Medical History Previous Medical History?: Yes Hx Hypertension: Yes Hx CVA: No Hx Heart Attack/AMI: No Hx Congestive Heart Failure: No Hx Diabetes: No Hx Deep Vein Thrombosis: No Hx Pulmonary Embolism: No Hx GERD: No Hx Liver Disease: No Hx Renal Disease: No Hx of Cancer: No Hx Sickle Cell Disease: No Hx Arthritis: No Hx Headaches / Migraines: No Hx Seizures: No Hx Kidney Stones: No Hx Psychiatric Treatment: No Hx Asthma: No Hx COPD: No Hx Tuberculosis: No Hx Dementia: No Hx HIV: No Additional medical history: HAS A HX OF DRUG ABUSE - Surgical History Past Surgical History?: Yes Hx Coronary Stent: No Hx Open Heart Surgery: No Hx Pacemaker: No Hx Internal Defibrillator: No Hx Cholecystectomy: No Hx Appendectomy: No Hx Breast Surgery: No Additional Surgical History: back surgery - Social History Smoking Status: Unknown if ever smoked Substance Use Type: Prescribed - Medications Home Medications: Home Medications Medication Instructions Recorded Confirmed Last Taken Type ALPRAZolam [Xanax TAB] 2 mg PO DAILY 11/14/17 11/14/17 11/13/17 History Amoxicillin/K Clav Tab [Augmentin 875 mg PO BID 11/14/17 11/14/17 11/13/17 History 875MG TAB] Lisinopril [Zestril] 20 mg PO DAILY 11/14/17 11/14/17 11/13/17 History Ondansetron [Zofran TAB] 8 mg PO Q8H PRN 11/14/17 11/14/1711/13/17 History ED Review of Systems ROS: Stated complaint: OD Other details as noted in HPI Comment: All other systems reviewed and negative Constitutional: denies: chills, fever Eyes: denies: eye pain, eye discharge, vision change ENT: denies: ear pain, throat pain Respiratory: denies: cough, shortness of breath, wheezing Cardiovascular: denies: chest pain, palpitations Gastrointestinal: denies: abdominal pain, nausea, diarrhea Genitourinary: denies: urgency, dysuria, discharge Musculoskeletal: denies: back pain, joint swelling, arthralgia Skin: denies: rash, lesions Neurological: denies: headache, numbness Physical Exam - Physical Exam Vital Signs: Vital Signs 11/15/17 19:36 Temperature 98.2 F Pulse Rate 53 L Respiratory 18 Rate Blood Pressure 123/70 Blood Pressure 123/70 [Right] O2 Sat by Pulse 100 Oximetry Physical Exam: GENERAL: The patient is well-developed well-nourished. HENT: Normocephalic. Atraumatic. Patient has moist mucous membranes. EYES: Extraocular motions are intact. Pupils equal reactive to light bilaterally. No nystagmus. NECK: Supple. Trachea is midline. CHEST/LUNGS: Clear to auscultation. There is no respiratory distress noted. HEART/CARDIOVASCULAR: Regular. There is no tachycardia. There is no murmur. ABDOMEN: Abdomen is soft, nontender. Patient has normal bowel sounds. There is no abdominal distention. SKIN: Skin is warm and dry. NEURO: The patient is fatigued but once she is awake she is alert, and oriented. The patient is cooperative. The patient has no focal neurologic deficits. The patient has normal speech. Cranial nerves II through XII grossly intact. MUSCULOSKELETAL: There is no tenderness or deformity. There is no limitation range of motion. There is no evidence of acute injury. ED Course Vital Signs 11/15/17 19:36 Temperature 98.2 F Pulse Rate 53 L Respiratory 18 Rate Blood Pressure 123/70 Blood Pressure 123/70 [Right] O2 Sat by Pulse 100 Oximetry ED Medical Decision Making - Lab Data Result diagrams: 11/15/17 19:46 11/15/17 19:46 - EKG Data -: EKG Interpreted by Ct EKG shows normal: sinus rhythm, axis, intervals, QRS complexes, ST-T waves Rate: normal - EKG Data When compared to previous EKG there are: previous EKG unavailable Interpretation: normal EKG - Medical Decision Making This patient presents with the complaint of being found unresponsive and has a very recent visit here and admission for polysubstance abuse and/or overdose. Patient appears fatigued when I approach her for history and physical but she is easily arousable and once woken up she is awake and alert. She admits to taking a few Xanax. It is unknown whether she did so secondary to some type of anxiety attack versus attempting to get a buzz but she denies any suicidal ideations or intentional overdose. Since she is awake and alert and denies any headache or any other physical manifestations, I did not feel that CT of the head was warranted at this time since she had one yesterday. The rest of her labs have been unremarkable and do not show any other etiology for the transient altered mental status and/or unresponsive episode. Her vital signs and stable throughout her ED course. She was reevaluated multiple times over multiple hours and has remained stable. Her daughter is bedside and is wanting to take her home and willing to take responsibility for her. She appears safe for discharge home at this time but we had a long talk about trying to avoid any further benzodiazepine use and certainly any other substance abuse. She will return to the ER with any worsening of her symptoms or any acute distress. - Differential Diagnosis alcohol abuse, benzo overdose, TIA, dysrythmia Critical Care Time: No Critical care attestation.: If time is entered above; I have spent that time in minutes in the direct care of this critically ill patient, excluding procedure time. ED Disposition Clinical Impression: Overdose of benzodiazepine Qualifiers: Encounter type: initial encounter Injury intent: accidental or unintentional Qualified Code(s): T42.4X1A - Poisoning by benzodiazepines, accidental ( unintentional), initial encounter Disposition: DC-01 TO HOME OR SELFCARE Is pt being admited?: No Condition: Stable Additional Instructions: Please follow-up with your primary care doctor in the next few days. As you have had a few different visits for overdose of benzodiazepines such as Xanax, it is recommended that he stay away from this medication. Or at the very least , if it is absolutely necessary that he take it for anxiety and/or a panic disorder, that you take it only as prescribed and it should not be mixed with alcohol or other medications. Please return to the emergency Department with any worsening of your symptoms or any acute distress. Referrals: primary care, your [Other] - 3-5 Days Time of Disposition: 22:42
[2017-11-15 20:21] LABS: Basophils % (Auto) 0.8 % (0.0-1.8); Mean Corpuscular HGB Conc 29 % (30-34); Mean Corpuscular Volume 90 fl (79-97); Platelet Count 223 K/mm3 (140-440); Red Blood Count 3.97 M/mm3 (3.65-5.03); Red Cell Distribution Width 19.4 % (13.2-15.2); White Blood Count 9.6 K/mm3 (4.5-11.0)
[2017-11-15 20:22] LABS: Hematocrit 35.6 % (30.3-42.9); Hemoglobin 10.1 gm/dl (10.1-14.3); Mean Corpuscular Hemoglobin 26 pg (28-32)
[2017-11-15 20:39] LABS: Urine Drugs of Abuse Note Disclamer
[2017-11-15 20:40] LABS: Alanine Aminotransferase 24 units/L (7-56); Albumin 4.2 g/dL (3.9-5); Albumin/Globulin Ratio 1.6 %; Alkaline Phosphatase 108 units/L (35-129); Anion Gap 20 mmol/L; BUN/Creatinine Ratio 15; Blood Urea Nitrogen 9 mg/dL (7-17); Calcium 8.9 mg/dL (8.4-10.2); Carbon Dioxide 22 mmol/L (22-30); Glucose 103 mg/dL (65-100); Potassium 4.2 mmol/L (3.6-5.0); Sodium 141 mmol/L (137-145); Total Protein 6.8 g/dL (6.3-8.2)
[2017-11-15 20:46] LABS: Bilirubin,Urine NEG (Negative); Blood,Urine NEG (Negative); Ketones,Urine TR mg/dL (Negative); Leukocyte Esterase,Urine NEG (Negative); Mucus,Urine 3+ /HPF; Nitrite,Urine NEG (Negative)
[2017-11-15 23:07] VITALS: BP 147/95
== END 2017-11-15 23:08 | disposition home or self-care (01) ==
LOC: ED 19:01
DX: T42.4X1A Poisoning by benzodiazepines, accidental (unintentional), initial encounter (principal); I10 Essential (primary) hypertension
CPT/HCPCS: 36415; 80053; 80307; 81001; 82140; 82962; 83735; 84443; 85025; 93005; 93010; 99284; G0480; 80320